=== PATIENT | male | born 1990 | race Caucasian/White ===

== ENCOUNTER 2020-09-07 05:41 | Day surgery (SDC) | payer BC ==
[2020-09-07] MEDS ORDERED: Lactated Ringers 1,000 ML IV SCH (06:30)
[2020-09-07] MEDS ORDERED: Versed 2 MG/2 ML Injection ONE (07:36)
[2020-09-07] MEDS ORDERED: DIPRIVAN 200 MG/20 ML IV ONE ×2 (07:36→07:37)
[2020-09-07 09:11] LABS: Hematocrit 39.9 % (42-50); Hemoglobin 13.8 gm/dl (12.5-18.0); Mean Cell Volume 82.3 fl (78-100); Mean Corpuscular Hemoglobin 28.5 pg (26-32); Mean Corpuscular Hgb Concent. 34.6 g/dl (32-36); Mean Platelet Volume 9.7 fl (7.5-11.0); Platelet Count 279 K/mm3 (150-450); Red Blood Count 4.85 M/mm3 (4.1-5.6); Red Cell Distribution Width 12.6 % (11.5-14.0); White Blood Count 7.9 K/mm3 (4.0-10.5)
[2020-09-07 09:36] VITALS: O2SAT 96
--- NOTE | 2020-09-07 10:31 | OP ---
SURGERY DATE/TIME: 09/06/2020 0743 PREOPERATIVE DIAGNOSIS: Rectal bleeding and pelvic pain. POSTOPERATIVE DIAGNOSIS: Concentric colon mass at 30 cm depth insertion. PROCEDURE: Colonoscopy with cold forceps biopsy. SURGEON: Dr. Kan. ANESTHESIA: MAC. Medications given by anesthesia department. HISTORY: The patient is a 30 year old white male patient who reports he has had rectal bleeding pretty much most of his life. He reports he has bowel movements about every three days. He has complaints of what he feels are internal and/or external hemorrhoids. Although on examination the patient's anal area was essentially normal. Digital examination revealed normal anal sphincter tone and no masses, normal prostate. The patient now reports he has been having problems with pelvic pain for which he is being examined and denies any family history of colon cancer, colon polyps or colitis. The patient was felt to need to have endoscopic evaluation. He was appraised of the risks of the procedure including the risk of perforation, phlebitis, untoward reaction to medication, bleeding and missed lesions. The patient verbalized his understanding and desired to have the procedure performed. DESCRIPTION OF PROCEDURE: The patient was given the medications by the anesthesia department. He had continuous pulse oximetry, ECG monitoring, intermittent blood pressure monitoring and tidal CO2 monitoring during the examination. He was placed in the left lateral decubitus position. A digital rectal examination was performed and described as above. The flexible Olympus pediatric colonoscope was used to intubate the rectum. A view of the colon was developed. In the sigmoid area approximately 30 cm depth insertion we began running into what appeared to be almost areas of necrotic appearing mucosa that was very firm and stenotic and we were unable to pass beyond 30 cm depth of insertion due to stenosis. Multiple biopsies were obtained from the edges of the lesion which is most consistent with adenocarcinoma of the colon. The scope was removed from the patient and he was sent back to OP recovery in good condition.
[2020-09-07 10:55] VITALS: BP 148/88; PULSE 70
--- NOTE | 2020-09-07 11:58 | XRAY ---
Indication: Sigmoid mass on same-day colonoscopy. Multiple contiguous axial images obtained through the abdomen and pelvis prior to and following 80 cc Isovue 370 contrast as ordered. Enteric contrast also used. Comparison: None Lung bases are clear. Heart is not enlarged. Noncontrasted images demonstrates tiny hepatic calcified granuloma. No other pathologic visceral calcifications/calculi. 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 Contrasted stomach and bowel loops appear nonobstructed. Distal ileum/terminal ileum demonstrates bowel wall thickening with stranding as seen in Crohn's disease. Appendix not identified. Majority of the sigmoid colon demonstrates mild/moderate circumferential wall thickening with intraluminal narrowing and pericolonic stranding either related to Crohn's versus mass. No free fluid/air. Right pelvis demonstrates 3.8 x 2.8 cm soft tissue mass, probable lymphadenopathy. Additional scattered small round mesenteric adenopathy, largest right mid abdomen anteriorly measuring 1.5 x 2.1 cm. Postcontrast images demonstrates normal visceral enhancement and renal excretion. Right mid kidney demonstrates a enhancing 1.2 cm noncalcified exophytic mass. Gallbladder moderately distended without gallstones or biliary distention. 3-4 mm right lobe hepatic cyst near the dome of the diaphragm. Remaining liver, gallbladder, pancreas, spleen, adrenal glands, kidneys, ureters, bladder, and aorta are unremarkable. No pathologic retroperitoneal lymphadenopathy. Osseous structures intact. No ventral or inguinal hernias. Impression: 1. Distal ileum/terminal ileum bowel wall thickening and stranding. Findings common to Crohn's disease. Malignancy not completely excluded. 2. Abnormal sigmoid bowel wall thickening, stranding, and intraluminal narrowing. Findings may be related to Crohn's disease but cannot completely exclude malignant mass. Malignancy is more likely as there is also probable metastatic mesenteric/pelvic lymphadenopathy. 3. 1.2 cm enhancing right renal mass concerning for renal cell carcinoma. 4. Incidental tiny hepatic cyst and tiny left renal angiomyolipoma.
== END 2020-09-07 11:10 | disposition home or self-care (01) ==
LOC: SDC 05:41
PROVIDERS: ATTEND Family Medicine
DX: C18.7 Malignant neoplasm of sigmoid colon (principal); K62.5 Hemorrhage of anus and rectum; R10.2 Pelvic and perineal pain; R19.00 Intra-abdominal and pelvic swelling, mass and lump, unspecified site
CPT/HCPCS: 36415; 74178; 82378; 85027; J2250; J2704

== ENCOUNTER 2021-08-22 10:30 | Emergency (ER) | payer BC ==
[2021-08-22] MEDS ORDERED: Sodium Chloride 0.9% 1000 ML 1,000 ML IV STA ×2 (10:49→12:23)
[2021-08-22] MEDS ORDERED: EMLA Cream 5 GM TP ONE ×2 (10:49→10:52)
[2021-08-22] MEDS ORDERED: Sodium Chloride 0.9% 1000 ML 1,000 ML ONE ×2 (10:56→12:24)
--- NOTE | 2021-08-22 11:09 | ERPHSYRPT ---
- History of Present Illness Time Seen by Provider: 08/22/21 10:40 Source: patient Patient Subjective Stated Complaint: weakness Triage Nursing Assessment: Patient brought back to ED via w/c and transferred to bed per self. Patient A+O X 3. Patient's skin pink, warm. Patient complains of weakness that started today. Patient has stage 4 colon cancer with mets to paratoneal lining. Patient had chemo last week. Patient states he has not been drinking enough fluids and feels like he is dehydrated. Patient has ileostomy and everything he does drink immediately comes out of ileostomy. Patient denies pain or discomfort. Physician History: Patient is a 31-year-old male 1 year post diagnosis of metastatic colon cancer presents to our ED feeling weak x1 3 days. Patient believes he is dehydrated. Patient states whenever he drinks his ileostomy output increases. Patient believes he is losing fluid through the ileostomy. No fever. Patient denies pain. Patient has a resting tachycardia. No chest pain or shortness of breath. Symptoms are constant. Symptoms are moderate in intensity. No specific worsening or improving factors. Patient voices no other complaints or concerns at this time. Timing/Duration: day(s) (3 days) Severity: moderate Modifying Factors: Improves With: nothing Associated Symptoms: No nausea, No vomiting, No abdominal pain, No shortness of breath, No diaphoresis, No cough, No chills, No fever, No headaches, No syncope, No seizure, No weakness Allergies/Adverse Reactions: No Known Drug Allergies Allergy (Verified 08/22/21 10:34) Home Medications: Oxycodone HCl/Acetaminophen [Roxicet 5-325 Tablet] 1 tab PO Q4H PRN PRN 08/22/21 [History] Hx Tetanus, Diphtheria Vaccination/Date Given: Yes Hx Influenza Vaccination/Date Given: No Hx Pneumococcal Vaccination/Date Given: No Immunizations Up to Date: Yes Travel Risk - International Travel Have you traveled outside of the country in past 3 weeks: No - Coronavirus Screening Are you exhibiting any of the following symptoms?: No Close contact with a COVID-19 positive Pt in past 14-21 Days: No - Vaccine Status Have you recieved a Covid-19 vaccination: No - Review of Systems Constitutional: No Symptoms, No Fever, No Chills Eyes: No Symptoms Ears, Nose, & Throat: No Symptoms Respiratory: No Symptoms, No Cough, No Dyspnea Cardiac: No Symptoms, No Chest Pain, No Edema, No Syncope Abdominal/Gastrointestinal: No Symptoms, No Abdominal Pain, No Nausea, No Vomiting, No Diarrhea Genitourinary Symptoms: No Symptoms, No Dysuria Musculoskeletal: No Symptoms, No Back Pain, No Neck Pain Skin: No Symptoms, No Rash Neurological: No Symptoms, No Dizziness, No Focal Weakness, No Sensory Changes Psychological: No Symptoms Endocrine: No Symptoms Hematologic/Lymphatic: No Symptoms Immunological/Allergic: No Symptoms All Other Systems: Reviewed and Negative - Past Medical History Pertinent Past Medical History: No Neurological History: No Pertinent History ENT History: No Pertinent History Cardiac History: No Pertinent History Respiratory History: No Pertinent History Endocrine Medical History: No Pertinent History Musculoskeletal History: Fractures GI Medical History: GERD History: No Pertinent History Male Reproductive Disorders: No Pertinent History Other Medical History: Left wrsit fx, colon mass. Stage 4 colon cancer with mets to paratoneal lining. with bone mets, but radiation got it gone. Checking this week again for bone mets. - Past Surgical History Past Surgical History: Yes Neuro Surgical History: No Pertinent History Cardiac: No Pertinent History Respiratory: No Pertinent History Gastrointestinal: Colon Resection, Other Genitourinary: No Pertinent History Musculoskeletal: No Pertinent History Male Surgical History: Vasectomy Other Surgical History: ileostomy - Social History Smoking Status: Former smoker Exposure to second hand smoke: No Drug Use: none Patient Lives Alone: No - Nursing Vital Signs Nursing Vital Signs: Initial Vital Signs Temperature 97.5 F 08/22/21 10:36 Pulse Rate 122 H 08/22/21 10:36 Respiratory Rate 20 08/22/21 10:36 Blood Pressure 149/102 08/22/21 10:36 O2 Sat by Pulse Oximetry 98 08/22/21 10:36 Pain Scale Pain Intensity 0 - Physical Exam General Appearance: no apparent distress, alert Eye Exam: PERRL/EOMI, eyes nml inspection Ears, Nose, Throat Exam: normal ENT inspection, TMs normal, pharynx normal, moist mucous membranes Neck Exam: normal inspection, non-tender, supple, full range of motion Respiratory Exam: normal breath sounds, lungs clear, airway intact, No chest tenderness, No respiratory distress Cardiovascular Exam: regular rate/rhythm, normal heart sounds, normal peripheral pulses Gastrointestinal/Abdomen Exam: soft, normal bowel sounds, other (Intact ileostomy site. No obvious cellulitis or erythema.), No tenderness, No distention, No mass Back Exam: normal inspection, normal range of motion, No CVA tenderness, No vertebral tenderness Extremity Exam: normal inspection, normal range of motion, pelvis stable Neurologic Exam: alert, oriented x 3, cooperative, normal mood/affect, nml cerebellar function, sensation nml, No motor deficits Skin Exam: normal color, warm, dry, No rash Lymphatic Exam: No adenopathy SpO2 Interpretation: normal SpO2: 98 O2 Delivery: Room Air - Course Nursing assessment & vital signs reviewed: Yes Ordered Tests: Active Orders 24 hr Category Date Time Status IV Insertion STAT Care 08/22/21 10:49 Active CBC W DIFF Stat Lab 08/22/21 11:25 Completed CMP Stat Lab 08/22/21 11:25 Completed LIPASE Stat Lab 08/22/21 11:25 Completed UA W/RFX UR CULTURE Stat Lab 08/22/21 12:03 Completed Medication Summary Generic Name Dose Route Start Last Admin Trade Name Freq PRN Reason Stop Dose Admin Heparin Sodium (Beef Lung) 500 units 08/22/21 14:36 Heparin Lock Flush Pf 500 Units/5 Ml Syringe PICC 09/21/21 14:35 PRN PRN IV PORT FLUSH Discontinued Medications Generic Name Dose Route Start Last Admin Trade Name Freq PRN Reason Stop Dose Admin Heparin Sodium (Beef Lung) Confirm 08/22/21 11:10 Heparin Lock Flush Pf 500 Units/5 Ml Syringe Administered 08/22/21 11:11 Dose 500 units .ROUTE .STK-MED ONE Heparin Sodium (Beef Lung) Confirm 08/22/21 14:23 Heparin Lock Flush Pf 500 Units/5 Ml Syringe Administered 08/22/21 14:24 Dose 500 units .ROUTE .STK-MED ONE Sodium Chloride 1,000 mls @ 999 mls/hr 08/22/21 10:49 08/22/21 12:06 Sodium Chloride 0.9% 1000 Ml IV 08/22/21 11:49 Infused .Q1H1M STA Infusion Sodium Chloride Confirm 08/22/21 10:56 Sodium Chloride 0.9% 1000 Ml Administered 08/22/21 10:57 Dose 1,000 mls @ ud .ROUTE .STK-MED ONE Sodium Chloride 1,000 mls @ 999 mls/hr 08/22/21 12:23 08/22/21 13:32 Sodium Chloride 0.9% 1000 Ml IV 08/22/21 13:23 Infused .Q1H1M STA Infusion Sodium Chloride Confirm 08/22/21 12:24 Sodium Chloride 0.9% 1000 Ml Administered 08/22/21 12:25 Dose 1,000 mls @ ud .ROUTE .STK-MED ONE Lidocaine/Prilocaine 2.5 gm 08/22/21 10:52 08/22/21 10:52 Lidocaine/Prilocaine 5 Gm 5 Gm Tube TP 08/22/21 10:53 2.5 gm STAT ONE Administration Lidocaine/Prilocaine Confirm 08/22/21 10:49 Lidocaine/Prilocaine 5 Gm 5 Gm Tube Administered 08/22/21 10:50 Dose 5 gm TP .STK-MED ONE Oxycodone/Acetaminophen 1 tab 08/22/21 11:50 08/22/21 11:56 Oxycodone Hcl/Apap 5 Mg/325 Mg Tablet PO 08/22/21 11:51 1 tab STAT STA Administration Oxycodone/Acetaminophen Confirm 08/22/21 11:55 Oxycodone Hcl/Apap 5 Mg/325 Mg Tablet Administered 08/22/21 11:56 Dose 1 tab .ROUTE .STK-MED ONE Lab/Rad Data: Laboratory Result Diagrams 08/22/21 11:25 08/22/21 11:25 Laboratory Results 08/22/21 08/22/21 08/22/21 Range/Units 12:03 11:25 11:25 WBC 12.0 H (4.0-10.5) K/mm3 RBC 5.77 H (4.1-5.6) M/mm3 Hgb 16.7 (12.5-18.0) gm/dl Hct 48.7 (42-50) % MCV 84.4 (78-100) fl MCH 28.9 (26-32) pg MCHC 34.3 (32-36) g/dl RDW 13.6 (11.5-14.0) % Plt Count 419 (150-450) K/mm3 MPV 9.1 (7.5-11.0) fl Gran % 78.0 H (36.0-66.0) % Eos # (Auto) 0.22 (0-0.5) Absolute Lymphs (auto) 1.33 (1.0-4.6) Absolute Monos (auto) 1.07 (0.0-1.3) Lymphocytes % 11.1 L (24.0-44.0) % Monocytes % 9.0 (0.0-12.0) % Eosinophils % 1.8 (0.00-5.0) % Basophils % 0.1 (0.0-0.4) % Absolute Granulocytes 9.32 H (1.4-6.9) Basophils # 0.01 (0-0.4) Sodium 134 L (137-145) mmol/L Potassium 4.2 (3.5-5.1) mmol/L Chloride 100 (98-107) mmol/L Carbon Dioxide 21 L (22-30) mmol/L Anion Gap 18.1 H (5-15) MEQ/L BUN 10 (9-20) mg/dL Creatinine 0.73 (0.66-1.25) mg/dL Estimated GFR > 60.0 ML/MIN Glucose 114 H (74-106) mg/dL Calcium 8.9 (8.4-10.2) mg/dL Total Bilirubin 0.60 (0.2-1.3) mg/dL AST 22 (17-59) U/L ALT 24 (0-50) U/L Alkaline Phosphatase 159 H (38-126) U/L Serum Total Protein 7.2 (6.3-8.2) g/dL Albumin 4.3 (3.5-5.0) g/dL Lipase 125 (23-300) U/L Urine Color YELLOW (YELLOW) Urine Appearance SLIGHTLY CLOUDY (CLEAR) Urine pH 6.0 (5-6) Ur Specific [place] 1.018 (1.005-1.025) Urine Protein 30 (Negative) Urine Ketones NEGATIVE (NEGATIVE) Urine Blood NEGATIVE (0-5) Sukumar/ul Urine Nitrite NEGATIVE (NEGATIVE) Urine Bilirubin NEGATIVE (NEGATIVE) Urine Urobilinogen NEGATIVE (0-1) mg/dL Ur Leukocyte Esterase NEGATIVE (NEGATIVE) Urine WBC (Auto) 3-5 (0-5) /HPF Urine RBC (Auto) NONE (0-2) /HPF U Epithel Cells (Auto) RARE (FEW) /HPF Urine Bacteria (Auto) RARE (NEGATIVE) /HPF Urine Mucus (Auto) SLIGHT (NEGATIVE) /HPF Urine Culture Reflexed NO (NO) Urine Glucose NEGATIVE (NEGATIVE) mg/dL - Progress Progress: improved Progress Note: Patient reassessed. He feels well. Vital stable. IV fluids administered. Patient ate a meal in our ED. Patient now requesting discharge. Work-up reveals a mild leukocytosis with a mild hyponatremia. No signs of infection ob served. Portions of this note were created with voice recognition technology. There may be grammatical, spelling, punctuation or sound alike errors 08/22/21 14:12 Counseled pt/family regarding: lab results, diagnosis, need for follow-up, rad results - Departure Departure Disposition: Home Clinical Impression: Dehydration, Hyponatremia, Leukocytosis Condition: Stable Critical Care Time: No Referrals: DAIANA BA MD [Primary Care Provider] - Follow up/PCP as directed Additional Instructions: Discharge/Care Plan NKECHIODALYS KIRSTEN was seen on 08/22/21 in the Emergency Room. The patient was counseled regarding Diagnosis,Lab results, Imaging studies, need for follow up and when to return to the Emergency Room. Prescriptions given: Discharge Note I have spoken with the patient and/or caregivers. I have explained the patient's condition, diagnosis and treatment plan based on the information available to me at this time. I have answered the patient's and/or caregiver's questions and addressed any concerns. The patient and/or caregivers have as good understanding of the patient's diagnosis, condition and treatment plan as can be expected at this point. The vital signs have been stable. The patient's condition is stable and appropriate for discharge from the emergency department. The patient will pursue further outpatient evaluation with the primary care physician or other designated or consulting physician as outlined in the discharge instructions. The patient and/or caregivers are agreeable to this plan of care and follow-up instructions have been explained in detail. The patient and/or caregivers have received these instruction. The patient/and or caregivers are aware that any significant change in condition or worsening of symptoms should prompt an immediate return to this or the closest emergency department or call 911.
[2021-08-22 11:46] LABS: Absolute Neutrophil Ct (ANC) 9.32 (1.4-6.9); BASOPHIL % 0.1 % (0.0-0.4); Basophil (Absolute #) 0.01 (0-0.4); Eosinophil % 1.8 % (0.00-5.0); Eosinophil (Absolute #) 0.22 (0-0.5); Hematocrit 48.7 % (42-50); Hemoglobin 16.7 gm/dl (12.5-18.0); Lymphocyte (Absolute #) 1.33 (1.0-4.6); Lymphocytes % 11.1 % (24.0-44.0); Mean Cell Volume 84.4 fl (78-100); Mean Corpuscular Hemoglobin 28.9 pg (26-32); Mean Corpuscular Hgb Concent. 34.3 g/dl (32-36); Mean Platelet Volume 9.1 fl (7.5-11.0); Monocyte (Absolute #) 1.07 (0.0-1.3); Platelet Count 419 K/mm3 (150-450); Red Blood Count 5.77 M/mm3 (4.1-5.6); Red Cell Distribution Width 13.6 % (11.5-14.0)
[2021-08-22 11:48] LABS: ALBUMIN 4.3 g/dL (3.5-5.0); ALKALINE PHOSPHATASE 159 U/L (38-126); ANION GAP 18.1 MEQ/L (5-15); BLOOD UREA NITROGEN 10 mg/dL (9-20); CHLORIDE 100 mmol/L (98-107); Calcium 8.9 mg/dL (8.4-10.2); Carbon Dioxide 21 mmol/L (22-30); Creatinine 1 0.73 mg/dL (0.66-1.25); EST GLOMERULAR FILTRATION RATE > 60.0 ML/MIN; Glucose 114 mg/dL (74-106); LIPASE 125 U/L (23-300); Potassium 4.2 mmol/L (3.5-5.1); SGOT/AST 22 U/L (17-59); SGPT/ALT 24 U/L (0-50); SODIUM 134 mmol/L (137-145); Total Protein 7.2 g/dL (6.3-8.2)
[2021-08-22] MEDS ORDERED: PERCOCET TABLET 5/325MG PO STA (11:50)
[2021-08-22] MEDS ORDERED: PERCOCET TABLET 5/325MG ONE (11:55)
[2021-08-22 12:17] LABS: Appearance SLIGHTLY CLOUDY (CLEAR); Bacteria RARE /HPF (NEGATIVE); Bilirubin NEGATIVE (NEGATIVE); Blood NEGATIVE Ery/ul (0-5); Epithelial Cells RARE /HPF (FEW); Glucose NEGATIVE (NEGATIVE); Ketones NEGATIVE (NEGATIVE); Leukocyte Esterase NEGATIVE (NEGATIVE); Mucus SLIGHT /HPF (NEGATIVE); Nitrite NEGATIVE (NEGATIVE); Protein,Urine Dip 30 (Negative); Specific Gravity 1.018 (1.005-1.025); Urobilinogen NEGATIVE mg/dL (0-1)
[2021-08-22 14:02] VITALS: BP 135/87
[2021-08-22 14:15] VITALS: O2SAT 98
[2021-08-22 14:38] VITALS: PULSE 107
== END 2021-08-22 14:44 | disposition home or self-care (01) ==
LOC: ED 10:30
DX: E86.0 Dehydration (principal); E87.1 Hypo-osmolality and hyponatremia; D72.829 Elevated white blood cell count, unspecified; Z98.0 Intestinal bypass and anastomosis status; Z85.038 Personal history of other malignant neoplasm of large intestine; Z79.891 Long term (current) use of opiate analgesic
CPT/HCPCS: 36000; 36415; 80053; 81001; 83690; 85025; 96360; 96361; 99284; J1642; A9270-GY

== ENCOUNTER 2021-08-24 06:10 | Observation (INO) | payer BC ==
[2021-08-24] MEDS ORDERED: Zofran 4 MG/2 ML VIAL IV ONE ×2 (06:40→13:14)
[2021-08-24] MEDS ORDERED: Sodium Chloride 0.9% 1000 ML 1,000 ML IV STA (06:40)
[2021-08-24] MEDS ORDERED: Zofran 4 MG/2 ML VIAL ONE ×2 (06:46→12:20)
[2021-08-24] MEDS ORDERED: Sodium Chloride 0.9% 1000 ML 1,000 ML ONE ×2 (06:47→08:08)
[2021-08-24 06:52] LABS: Absolute Neutrophil Ct (ANC) 7.68 (1.4-6.9); Basophil (Absolute #) 0 (0-0.4); Eosinophil % 2.1 % (0.00-5.0); Eosinophil (Absolute #) 0.23 (0-0.5); Hematocrit 54.9 % (42-50); Hemoglobin 18.8 gm/dl (12.5-18.0); Lymphocyte (Absolute #) 1.63 (1.0-4.6); Lymphocytes % 14.7 % (24.0-44.0); Mean Cell Volume 83.1 fl (78-100); Mean Corpuscular Hemoglobin 28.4 pg (26-32); Mean Corpuscular Hgb Concent. 34.2 g/dl (32-36); Mean Platelet Volume 9.1 fl (7.5-11.0); Monocyte (Absolute #) 1.57 (0.0-1.3); Monocytes % 14.1 % (0.0-12.0); Neutrophil % 69.1 % (36.0-66.0); Platelet Count 471 K/mm3 (150-450); Red Blood Count 6.61 M/mm3 (4.1-5.6); Red Cell Distribution Width 14.9 % (11.5-14.0); White Blood Count 11.1 K/mm3 (4.0-10.5)
[2021-08-24 07:02] LABS: ALBUMIN 4.6 g/dL (3.5-5.0); ALKALINE PHOSPHATASE 202 U/L (38-126); BLOOD UREA NITROGEN 16 mg/dL (9-20); CHLORIDE 93 mmol/L (98-107); Calcium 8.3 mg/dL (8.4-10.2); Carbon Dioxide 23 mmol/L (22-30); EST GLOMERULAR FILTRATION RATE > 60.0 ML/MIN; Glucose 163 mg/dL (74-106); Potassium 4.6 mmol/L (3.5-5.1); SGOT/AST 20 U/L (17-59); SGPT/ALT 26 U/L (0-50); SODIUM 132 mmol/L (137-145); Total Protein 7.7 g/dL (6.3-8.2)
[2021-08-24] MEDS ORDERED: Ativan 2 MG/1 ML VIAL ONE (07:35)
[2021-08-24] MEDS ORDERED: Sodium Chloride 0.9% 1000 ML 1,000 ML IV SCH (08:15)
[2021-08-24 08:29] LABS: Slide Review 1 YES
[2021-08-24] MEDS ORDERED: Inapsine 5 MG/2 ML IV ONE (08:54)
[2021-08-24] MEDS ORDERED: BENADRYL 50 MG/ML IV ONE (08:54)
--- NOTE | 2021-08-24 08:54 | XRAY ---
Indication: Abdomen pain. Sigmoid mass. Multiple contiguous images obtained through the abdomen and pelvis without contrast. Comparison: September 07, 2020. Lung bases remain clear. Heart not enlarged. New right mid abdomen diverting ostomy. Stomach and small bowel loops are now fluid distended with air-fluid leveling. Jejunal bowel loop is air distended up to 4 cm with asynchronous fluid leveling concerning for small bowel obstruction. There remains mid to proximal sigmoid bowel wall thickening versus mass. Lack of contrast precludes further characterization. New diffuse mesenteric micronodules and right abdominal mesenteric caking worrisome for metastasis. New tiny perihepatic and right colic free fluid. No free air. 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 Right mid kidney demonstrates stable 1.2 cm indeterminant exophytic mass. Remaining liver, gallbladder, pancreas, spleen, adrenal glands, kidneys, ureters, bladder, and aorta appear unremarkable for noncontrast exam. No pathologic retroperitoneal lymphadenopathy. Osseous structures intact. No suspicious bony lesions. Impression: 1. New right mid abdomen diverting ostomy. 2. New fluid distended stomach and proximal small bowel loops with asynchronous air-fluid leveling favoring small bowel obstruction. 3. New diffuse mesenteric micronodules and mesenteric caking worrisome for metastasis. Tiny free fluid but no free air. 4. Again sigmoid bowel wall thickening versus mass. 5. Stable indeterminant right renal exophytic mass and left renal angiomyolipoma.
[2021-08-24] MEDS ORDERED: Ativan 2 MG/1 ML VIAL IV ONE ×2 (08:55→20:21)
[2021-08-24] MEDS ORDERED: BENADRYL 50 MG/ML ONE (08:59)
[2021-08-24] MEDS ORDERED: Inapsine 5 MG/2 ML ONE (08:59)
--- NOTE | 2021-08-24 09:46 | ERPHSYRPT ---
- History of Present Illness Time Seen by Provider: 08/24/21 08:14 Source: patient Exam Limitations: no limitations Patient Subjective Stated Complaint: pt states "I need fluids." Triage Nursing Assessment: pt came into the er via wheelchair; pt is axo x4; hx colon cancer; c/o dehydration; pt denies pain; pt denies N/V; pt states that he has liquid stools in his ileostomy; pt states that he was in the er on 08/22/21 for fluids; pt states that he went to his oncologist yesterday and received 1 L for fluid; pt states weakness; pt states that he is taking imodium to help form stool with no success; abd is soft, nontender; active bowel sounds in all quads; Physician History: 31 years old male with 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 Patient was seen in the ER 2 days ago, given fluids and received fluid at his oncology yesterday but it does not seem to be improving despite taking Imodium. Patient feels weak fatigued tired and dehydrated. Minimal abdominal discomfort/cramping at times. No nausea or vomiting. No fever or chills reported. Timing/Duration: day(s) (4), constant, gradual onset, worse Severity: moderate Modifying Factors: Improves With: nothing Associated Symptoms: abdominal pain Allergies/Adverse Reactions: No Known Drug Allergies Allergy (Unverified 08/24/21 06:19) Home Medications: Oxycodone HCl/Acetaminophen [Roxicet 5-325 Tablet] 1 tab PO Q4H PRN PRN 08/22/21 [History] Lorazepam 0.5 mg [Ativan 0.5 MG] 0.5 mg PO HS 08/24/21 [History] Hx Tetanus, Diphtheria Vaccination/Date Given: Yes Hx Influenza Vaccination/Date Given: No Hx Pneumococcal Vaccination/Date Given: No Travel Risk - International Travel Have you traveled outside of the country in past 3 weeks: No - Coronavirus Screening Are you exhibiting any of the following symptoms?: No Close contact with a COVID-19 positive Pt in past 14-21 Days: No - Vaccine Status Have you recieved a Covid-19 vaccination: No - Review of Systems Constitutional: Fatigue, Weakness Eyes: No Symptoms Ears, Nose, & Throat: No Symptoms Respiratory: No Symptoms Cardiac: Orthopnea Abdominal/Gastrointestinal: Abdominal Pain, Diarrhea Genitourinary Symptoms: No Symptoms Musculoskeletal: No Symptoms Skin: No Symptoms Neurological: No Symptoms Psychological: No Symptoms Endocrine: No Symptoms Hematologic/Lymphatic: No Symptoms Immunological/Allergic: No Symptoms - Past Medical History Pertinent Past Medical History: No Neurological History: No Pertinent History ENT History: No Pertinent History Cardiac History: No Pertinent History Respiratory History: No Pertinent History Endocrine Medical History: No Pertinent History Musculoskeletal History: Fractures GI Medical History: GERD, Other History: No Pertinent History Male Reproductive Disorders: No Pertinent History Other Medical History: Left wrsit fx, colon mass. Stage 4 colon cancer with mets to paratoneal lining. with bone mets, but radiation got it gone. Checking this week again for bone mets. - Past Surgical History Past Surgical History: Yes Neuro Surgical History: No Pertinent History Cardiac: No Pertinent History Respiratory: No Pertinent History Gastrointestinal: Colon Resection, Other Genitourinary: No Pertinent History Musculoskeletal: No Pertinent History Male Surgical History: Vasectomy Other Surgical History: ileostomy - Social History Smoking Status: Former smoker Exposure to second hand smoke: No Drug Use: none Patient Lives Alone: No - Nursing Vital Signs Nursing Vital Signs: Initial Vital Signs Pulse Rate 132 H 08/24/21 06:20 Respiratory Rate 18 08/24/21 06:20 Blood Pressure 127/82 08/24/21 06:20 O2 Sat by Pulse Oximetry 96 08/24/21 06:20 Pain Scale Pain Intensity 0 - Physical Exam General Appearance: no apparent distress, alert, anxiety Eye Exam: PERRL/EOMI, eyes nml inspection Ears, Nose, Throat Exam: normal ENT inspection, TMs normal, pharynx normal, dry mucous membranes Neck Exam: normal inspection, non-tender, supple, full range of motion Respiratory Exam: normal breath sounds, lungs clear Cardiovascular Exam: normal heart sounds, normal peripheral pulses, tachycardia Gastrointestinal/Abdomen Exam: soft, other (Ostomy well in place), No normal bowel sounds (Hyperactive), No tenderness Back Exam: normal inspection, normal range of motion Extremity Exam: normal inspection, normal range of motion Neurologic Exam: alert, oriented x 3, cooperative, can pusher II-XII nml as tested Skin Exam: normal color SpO2 Interpretation: normal SpO2: 97 Ordered Tests: Active Orders 24 hr Category Date Time Status IV Insertion STAT Care 08/24/21 06:40 Active ABDOMEN AND PELVIS W/0 CONTRAS [CT] Stat Exams 08/24/21 07:42 Completed CBC W DIFF Stat Lab 08/24/21 06:25 Completed CMP Stat Lab 08/24/21 06:25 Completed Lactic Acid Stat Lab 08/24/21 06:45 Completed MAG [MAGNESIUM] Stat Lab 08/24/21 06:25 Completed UA W/RFX UR CULTURE Stat Lab 08/24/21 11:49 Completed Medication Summary Generic Name Dose Route Start Last Admin Trade Name Freq PRN Reason Stop Dose Admin Sodium Chloride 1,000 mls @ 100 mls/hr 08/24/21 08:15 08/24/21 14:41 Sodium Chloride 0.9% 1000 Ml IV 09/23/21 08:14 Infused .Q10H FABIANA Infusion Sodium Chloride 500 mls @ 500 mls/hr 08/24/21 14:38 08/24/21 14:40 Sodium Chloride 0.9% 500 Ml IV 08/24/21 15:37 500 mls/hr .Q1H ONE Administration Discontinued Medications Generic Name Dose Route Start Last Admin Trade Name Freq PRN Reason Stop Dose Admin Diphenhydramine HCl 25 mg 08/24/21 08:54 08/24/21 09:00 Diphenhydramine Hcl 50 Mg/Ml Vial IV 08/24/21 08:55 25 mg STAT ONE Administration Diphenhydramine HCl Confirm 08/24/21 08:59 Diphenhydramine Hcl 50 Mg/Ml Vial Administered 08/24/21 09:00 Dose 50 mg .ROUTE .STK-MED ONE Droperidol 0.625 mg 08/24/21 08:54 08/24/21 09:02 Droperidol 5 Mg/2 Ml Vial IV 08/24/21 08:55 0.625 mg STAT ONE Administration Droperidol Confirm 08/24/21 08:59 Droperidol 5 Mg/2 Ml Vial Administered 08/24/21 09:00 Dose 5 mg .ROUTE .STK-MED ONE Sodium Chloride 1,000 mls @ 999 mls/hr 08/24/21 06:40 08/24/21 07:51 Sodium Chloride 0.9% 1000 Ml IV 08/24/21 07:40 Infused .Q1H1M STA Infusion Sodium Chloride Confirm 08/24/21 06:47 Sodium Chloride 0.9% 1000 Ml Administered 08/24/21 06:48 Dose 1,000 mls @ ud .ROUTE .STK-MED ONE Sodium Chloride Confirm 08/24/21 08:08 Sodium Chloride 0.9% 1000 Ml Administered 08/24/21 08:09 Dose 1,000 mls @ ud .ROUTE .STK-MED ONE Sodium Chloride Confirm 08/24/21 14:39 Sodium Chloride 0.9% 500 Ml Administered 08/24/21 14:40 Dose 500 mls @ ud IV .STK-MED ONE Lorazepam Confirm 08/24/21 07:35 Lorazepam 2 Mg/1 Ml 2 Mg Vial Administered 08/24/21 07:36 Dose 2 mg .ROUTE .STK-MED ONE Lorazepam 1 mg 08/24/21 08:55 08/24/21 07:42 Lorazepam 2 Mg/1 Ml 2 Mg Vial IV 08/24/21 08:56 1 mg STAT ONE Administration Ondansetron HCl 4 mg 08/24/21 06:40 08/24/21 06:48 Ondansetron Hcl 4 Mg/2 Ml Vial IV 08/24/21 06:41 4 mg STAT ONE Administration Ondansetron HCl Confirm 08/24/21 06:46 Ondansetron Hcl 4 Mg/2 Ml Vial Administered 08/24/21 06:47 Dose 4 mg .ROUTE .STK-MED ONE Ondansetron HCl Confirm 08/24/21 12:20 Ondansetron Hcl 4 Mg/2 Ml Vial Administered 08/24/21 12:21 Dose 4 mg .ROUTE .STK-MED ONE Ondansetron HCl 4 mg 08/24/21 13:14 08/24/21 13:23 Ondansetron Hcl 4 Mg/2 Ml Vial IV 08/24/21 13:15 4 mg STAT ONE Administration Lab/Rad Data: Laboratory Result Diagrams 08/24/21 06:25 08/24/21 06:25 Laboratory Results 08/24/21 08/24/21 08/24/21 Range/Units 11:49 06:45 06:25 WBC (4.0-10.5) K/mm3 RBC (4.1-5.6) M/mm3 Hgb (12.5-18.0) gm/dl Hct (42-50) % MCV (78-100) fl MCH (26-32) pg MCHC (32-36) g/dl RDW (11.5-14.0) % Plt Count (150-450) K/mm3 MPV (7.5-11.0) fl Gran % (36.0-66.0) % Eos # (Auto) (0-0.5) Absolute Lymphs (auto) (1.0-4.6) Absolute Monos (auto) (0.0-1.3) Lymphocytes % (24.0-44.0) % Monocytes % (0.0-12.0) % Eosinophils % (0.00-5.0) % Basophils % (0.0-0.4) % Absolute Granulocytes (1.4-6.9) Basophils # (0-0.4) Sodium (137-145) mmol/L Potassium (3.5-5.1) mmol/L Chloride (98-107) mmol/L Carbon Dioxide (22-30) mmol/L Anion Gap (5-15) MEQ/L BUN (9-20) mg/dL Creatinine (0.66-1.25) mg/dL Estimated GFR ML/MIN Glucose (74-106) mg/dL Lactic Acid 1.9 (0.4-2.0) Calcium (8.4-10.2) mg/dL Magnesium 2.0 (1.6-2.3) mg/dL Total Bilirubin (0.2-1.3) mg/dL AST (17-59) U/L ALT (0-50) U/L Alkaline Phosphatase (38-126) U/L Serum Total Protein (6.3-8.2) g/dL Albumin (3.5-5.0) g/dL Urine Color SHAWN (YELLOW) Urine Appearance SLIGHTLY CLOUDY (CLEAR) Urine pH 5.0 (5-6) Ur Specific Hastings 1.021 (1.005-1.025) Urine Protein 30 (Negative) Urine Ketones NEGATIVE (NEGATIVE) Urine Blood NEGATIVE (0-5) Sukumar/ul Urine Nitrite NEGATIVE (NEGATIVE) Urine Bilirubin NEGATIVE (NEGATIVE) Urine Urobilinogen NEGATIVE (0-1) mg/dL Ur Leukocyte Esterase NEGATIVE (NEGATIVE) Urine WBC (Auto) 3-5 (0-5) /HPF Urine RBC (Auto) NONE (0-2) /HPF U Hyaline Cast (Auto) 11-25 (0-2) /LPF U Epithel Cells (Auto) NONE (FEW) /HPF Urine Bacteria (Auto) RARE (NEGATIVE) /HPF Urine Mucus (Auto) SLIGHT (NEGATIVE) /HPF Urine Culture Reflexed NO (NO) Urine Glucose NEGATIVE (NEGATIVE) mg/dL Slides for Path Review 08/24/21 08/24/21 Range/Units 06:25 06:25 WBC 11.1 H (4.0-10.5) K/mm3 RBC 6.61 H (4.1-5.6) M/mm3 Hgb 18.8 H (12.5-18.0) gm/dl Hct 54.9 H (42-50) % MCV 83.1 (78-100) fl MCH 28.4 (26-32) pg MCHC 34.2 (32-36) g/dl RDW 14.9 H (11.5-14.0) % Plt Count 471 H (150-450) K/mm3 MPV 9.1 (7.5-11.0) fl Gran % 69.1 H (36.0-66.0) % Eos # (Auto) 0.23 (0-0.5) Absolute Lymphs (auto) 1.63 (1.0-4.6) Absolute Monos (auto) 1.57 H (0.0-1.3) Lymphocytes % 14.7 L (24.0-44.0) % Monocytes % 14.1 H (0.0-12.0) % Eosinophils % 2.1 (0.00-5.0) % Basophils % 0.0 (0.0-0.4) % Absolute Granulocytes 7.68 H (1.4-6.9) Basophils # 0 (0-0.4) Sodium 132 L (137-145) mmol/L Potassium 4.6 (3.5-5.1) mmol/L Chloride 93 L (98-107) mmol/L Carbon Dioxide 23 (22-30) mmol/L Anion Gap 20.0 H (5-15) MEQ/L BUN 16 (9-20) mg/dL Creatinine 1.30 H (0.66-1.25) mg/dL Estimated GFR > 60.0 ML/MIN Glucose 163 H (74-106) mg/dL Lactic Acid (0.4-2.0) Calcium 8.3 L (8.4-10.2) mg/dL Magnesium (1.6-2.3) mg/dL Total Bilirubin 0.60 (0.2-1.3) mg/dL AST 20 (17-59) U/L ALT 26 (0-50) U/L Alkaline Phosphatase 202 H (38-126) U/L Serum Total Protein 7.7 (6.3-8.2) g/dL Albumin 4.6 (3.5-5.0) g/dL Urine Color (YELLOW) Urine Appearance (CLEAR) Urine pH (5-6) Ur Specific Hastings (1.005-1.025) Urine Protein (Negative) Urine Ketones (NEGATIVE) Urine Blood (0-5) Sukumar/ul Urine Nitrite (NEGATIVE) Urine Bilirubin (NEGATIVE) Urine Urobilinogen (0-1) mg/dL Ur Leukocyte Esterase (NEGATIVE) Urine WBC (Auto) (0-5) /HPF Urine RBC (Auto) (0-2) /HPF U Hyaline Cast (Auto) (0-2) /LPF U Epithel Cells (Auto) (FEW) /HPF Urine Bacteria (Auto) (NEGATIVE) /HPF Urine Mucus (Auto) (NEGATIVE) /HPF Urine Culture Reflexed (NO) Urine Glucose (NEGATIVE) mg/dL Slides for Path Review YES - Progress Progress: improved Progress Note: 08/24/21 09:47 Is given fluid bolus and tachycardia is improving. Patient feels a little better. Has white count of 11, his creatinine 2 days ago was 0.7 and today 1.3. I believe patient needs more IV hydration. I have obtained CT abdomen pelvis without contrast which showed air-fluid levels suggesting SBO which I believe is more of a diarrheal disease related. I have discussed with Dr. Ba who recommended taking general surgery on board before admitting in here. I have discussed with Dr. Yissel Proctor, reviewed history, work-up and recommended patient to be transferred to place where his ileostomy was made. We will contact Latasha Cervantes 08/24/21 10:13 Discussed with PA for Dr. Petersen/[facility] who is very well familiar with patient condition. Agreed with transfer. She would contact their transfer center and internal medicine and will call us back. 08/24/21 10:[address] Wynn hospitalist and Dr. Mims off oncology, reviewed history, work-up and patient is accepted for transfer. Plan discussed with patient who understand and agrees with it. 08/24/21 15:20 Patient is accepted at [facility] but no bed is available and is on the wait list. Discussed with admitting about possibility of intestinal obstruction and still do not want to to be transferred immediately. I have discussed with Dr. Ba and Dr. Cerna, reviewed history, work-up and bed situation at [facility], Dr. Ba agreed with admission patient in here until bed is available and we will continue to hydrate him. Plan discussed with patient and family who understand and agree with it. Discussed with DrIvy: Twyla Iniguez Counseled pt/family regarding: lab results, diagnosis, need for follow-up, rad results - Departure Departure Disposition: Observation Clinical Impression: Small bowel obstruction, Acute renal failure, Diarrhea Condition: Stable Critical Care Time: No Referrals: DAIANA BA MD [Primary Care Provider] - Follow up/PCP as directed
[2021-08-24 12:00] LABS: Appearance SLIGHTLY CLOUDY (CLEAR); Bacteria RARE /HPF (NEGATIVE); Bilirubin NEGATIVE (NEGATIVE); Blood NEGATIVE Ery/ul (0-5); Glucose NEGATIVE (NEGATIVE); Ketones NEGATIVE (NEGATIVE); Leukocyte Esterase NEGATIVE (NEGATIVE); Mucus SLIGHT /HPF (NEGATIVE); Nitrite NEGATIVE (NEGATIVE); Protein,Urine Dip 30 (Negative); Specific Gravity 1.021 (1.005-1.025); Urobilinogen NEGATIVE mg/dL (0-1)
[2021-08-24] MEDS ORDERED: Sodium Chloride 0.9% 500 ML 500 ML IV ONE ×2 (14:38→14:39)
[2021-08-24 16:32] LABS: INFLUENZA A NEGATIVE (NEGATIVE); INFLUENZA B NEGATIVE (NEGATIVE); RESPIRATORY SYNCTIAL VIRUS NEGATIVE (Negative); SARS-CoV-2 Xpert Express NEGATIVE (NEGATIVE)
[2021-08-24] MEDS ORDERED: TYLENOL 325 MG PO PRN (17:38)
[2021-08-24] MEDS: Sodium Chloride 0.9% 1000 ML 1,000 ML IV SCH (18:16)
[2021-08-24] MEDS ORDERED: Compazine 5 MG PO PRN (20:18)
[2021-08-24] MEDS: PERCOCET TABLET 5/325MG PO PRN (20:25)
[2021-08-24] MEDS: Zofran 4 MG/2 ML VIAL IV PRN (20:50)
[2021-08-25] MEDS: PERCOCET TABLET 5/325MG PO PRN ×4 (02:16→16:23)
[2021-08-25] MEDS: Sodium Chloride 0.9% 1000 ML 1,000 ML IV SCH ×2 (02:17→10:24)
[2021-08-25 06:00] LABS: Absolute Neutrophil Ct (ANC) 5.24 (1.4-6.9); BASOPHIL % 0.1 % (0.0-0.4); Basophil (Absolute #) 0.01 (0-0.4); Eosinophil % 4.7 % (0.00-5.0); Eosinophil (Absolute #) 0.42 (0-0.5); Hematocrit 44.7 % (42-50); Lymphocyte (Absolute #) 1.96 (1.0-4.6); Lymphocytes % 21.8 % (24.0-44.0); Mean Cell Volume 85.5 fl (78-100); Mean Corpuscular Hemoglobin 28.7 pg (26-32); Mean Corpuscular Hgb Concent. 33.6 g/dl (32-36); Mean Platelet Volume 9.1 fl (7.5-11.0); Monocyte (Absolute #) 1.36 (0.0-1.3); Monocytes % 15.1 % (0.0-12.0); Neutrophil % 58.3 % (36.0-66.0); Platelet Count 290 K/mm3 (150-450); Red Blood Count 5.23 M/mm3 (4.1-5.6)
[2021-08-25 06:15] LABS: ALBUMIN 3.5 g/dL (3.5-5.0); ALKALINE PHOSPHATASE 120 U/L (38-126); ANION GAP 12.1 MEQ/L (5-15); BLOOD UREA NITROGEN 12 mg/dL (9-20); CHLORIDE 98 mmol/L (98-107); Calcium 6.3 mg/dL (8.4-10.2); Carbon Dioxide 25 mmol/L (22-30); Creatinine 1 1.08 mg/dL (0.66-1.25); EST GLOMERULAR FILTRATION RATE > 60.0 ML/MIN; Glucose 108 mg/dL (74-106); Potassium 3.6 mmol/L (3.5-5.1); SGOT/AST 18 U/L (17-59); SGPT/ALT 21 U/L (0-50); SODIUM 131 mmol/L (137-145); Total Protein 6.2 g/dL (6.3-8.2)
[2021-08-25] MEDS ORDERED: Ativan 0.5 MG PO PRN (08:12)
[2021-08-25] MEDS ORDERED: PROTONIX 40 MG IV IV SCH (10:00)
--- NOTE | 2021-08-25 11:14 | XRAY ---
Indication: Small bowel obstruction. History: Cancer. Multiple contiguous axial images obtained through the abdomen and pelvis without contrast. Comparison: One day earlier. Lung bases remain clear. Heart not enlarged. Stomach and small bowel loops are again mildly distended less than before again with asynchronous fluid leveling. Maximum distended jejunum is 2.9 cm, previously 4 cm. Findings again favor small bowel obstruction. There remains radiopacity throughout the colon presumed ingested medication/bismuth versus barium. Grossly stable right mid abdomen diverting ostomy, mid to proximal sigmoid bowel wall thickening/mass, diffuse metastatic mesenteric micronodules/mesenteric caking, tiny perihepatic fluid, small right mid renal indeterminant exophytic mass, and tiny left mid renal angiomyolipoma. No free air. Remaining liver, gallbladder, pancreas, spleen, adrenal glands, kidneys, ureters, and bladder are unremarkable for noncontrast exam. Impression: 1. Small bowel obstruction improved as detailed above. 2. Remaining CT abdomen/pelvis without contrast unchanged again demonstrating right mid abdomen diverting ostomy, diffuse mesenteric metastasis with tiny free fluid, sigmoid bowel wall thickening/mass, small indeterminate right renal exophytic mass, and tiny left renal angiomyolipoma.
[2021-08-25 13:01] VITALS: O2SAT 98
[2021-08-25] MEDS: Zofran 4 MG/2 ML VIAL IV PRN (13:24)
[2021-08-25 17:00] VITALS: BP 136/88; PULSE 93
--- NOTE | 2021-09-01 20:36 | PCM.SSS ---
History of Present Illness - Chief Complaint Chief Complaint: weakness, volume depletion Date: 08/25/21 History of Present Illness: is a 31 year old male. Pt. with history of severe metastatic colon cancer, currently working with hospitals and oncologist in [place] for further management of his ongoing treatment of his cancer. Pt. was unable to hold down food and liquids for the past several days and presented to ER for stabilization. Pt. notes he has been receiving chemotherapy in hopes to soon debulk his cancer and initiate a treatment he had previously failed, but hopes he now will tolerate. CT showed a small bowel obstruction and patient being unable to be transferred was admitted to hospital for further management and stabilization as we await a bed available with his oncologist and surgeons. - Review of Systems Constitutional: No Fever, No Chills Eyes: No Symptoms Ears, Nose, & Throat: No Symptoms Respiratory: No Cough, No Short Of Breath Cardiac: No Chest Pain, No Edema, No Syncope Abdominal/Gastrointestinal: Abdominal Pain, Nausea, Vomiting, Diarrhea Genitourinary Symptoms: No Dysuria Musculoskeletal: No Back Pain, No Neck Pain Skin: No Rash Neurological: No Dizziness, No Focal Weakness, No Sensory Changes Psychological: No Symptoms Endocrine: No Symptoms Hematologic/Lymphatic: No Symptoms Immunological/Allergic: No Symptoms Medications & Allergies Home Medications: Home Medication List Oxycodone HCl/Acetaminophen [Roxicet 5-325 Tablet] 1 tab PO Q4H PRN PRN 08/22/21 [History Confirmed 08/24/21] Lorazepam 0.5 mg [Ativan 0.5 MG] 0.5 mg PO Q6HPRN PRN 08/24/21 [History Confirmed 08/24/21] Prochlorperazine Maleate 10 mg [Compazine 10 mg] 10 mg PO Q6HPRN PRN 08/24/21 [History Confirmed 08/24/21] Allergies/Adverse Reactions: Allergies Allergy/AdvReac Type Severity Reaction Status Date / Time No Known Drug Allergies Allergy Unverified 08/24/21 06:19 - Past Medical History Past Medical History: No Neurological History: No Pertinent History ENT History: No Pertinent History Cardiac History: No Pertinent History Respiratory History: No Pertinent History Endocrine Medical History: No Pertinent History Musculoskelatal History: Fractures GI Medical History: Colorectal Cancer, GERD, Other History: No Pertinent History Male Reproductive Disorders: No Pertinent History Comment: Left wrsit fx, colon mass. Stage 4 colon cancer with mets to paratoneal lining. with bone mets, but radiation got it gone. Checking this week again for bone mets. - Past Surgical History Past Surgical History: Yes Neuro Surgical History: No Pertinent History Cardiac History: No Pertinent History Respiratory Surgery: No Pertinent History GI Surgical History: Colon Resection, Other Genitourinary Surgical Hx: No Pertinent History Musculskeletal Surgical Hx: No Pertinent History Male Surgical History: Vasectomy Other Surgical History: ileostomy - Social History Smoking Status: Never smoker Exposure to second hand smoke: No Alcohol: None Drug Use: none - Physical Exam General Appearance: no apparent distress, alert Neurologic Exam: alert, oriented x 3, cooperative, normal mood/affect, nml cerebellar function, nml station & gait, sensation nml, No motor deficits Eye Exam: PERRL/EOMI, eyes nml inspection Ears, Nose, Throat Exam: normal ENT inspection, moist mucous membranes Neck Exam: normal inspection, non-tender, supple, full range of motion Respiratory Exam: normal breath sounds, lungs clear, No respiratory distress Cardiovascular Exam: regular rate/rhythm, normal heart sounds, normal peripheral pulses Gastrointestinal/Abdomen Exam: soft, normal bowel sounds, No tenderness, No mass Back Exam: normal inspection, normal range of motion, No CVA tenderness, No vertebral tenderness Extremity Exam: normal inspection, normal range of motion, pelvis stable Skin Exam: normal color, warm, dry, No rash Lymphatic Exam: No adenopathy Assessment/Plan (1) Abdominal pain Status: Acute Code(s): R10.9 - UNSPECIFIED ABDOMINAL PAIN (2) Dehydration Status: Acute Code(s): E86.0 - DEHYDRATION (3) Diarrhea Status: Acute Code(s): R19.7 - DIARRHEA, UNSPECIFIED (4) Small bowel obstruction Status: Acute Code(s): K56.609 - UNSP INTESTNL OBST, UNSP TO PARTIAL VERSUS COMPLETE OBST Hospital Summary - Hospital Course Hospital Course: Pt. admitted and started on appropriate ivf, pain management and anti emetic medications, the following morning the patient was feeling much better as we awaited an open bed at hospital serviced by his oncologist and surgical group. Bed opened up later in the day and patient was transferred for further evaluation and management of his cancer, small bowel obstruction and hopefully further treatment of his cancer. - Vitals & Intake/Output Vital Signs: Vital Signs Temperature 97.3 F 08/25/21 16:00 Pulse Rate 93 H 08/25/21 16:00 Respiratory Rate 16 08/25/21 16:00 Blood Pressure 136/88 08/25/21 16:00 O2 Sat by Pulse Oximetry 98 08/25/21 16:00 - Lab Result Diagrams: 08/25/21 05:40 08/25/21 05:40 - Discharge Discharge Date: 08/25/21 Disposition: DC TO OTHER HOSP Condition: Stable Prescriptions: No Action Oxycodone HCl/Acetaminophen [Roxicet 5-325 Tablet] 1 tab PO Q4H PRN PRN PRN Reason: Pain Lorazepam 0.5 mg [Ativan 0.5 MG] 0.5 mg PO Q6HPRN PRN PRN Reason: Anxiety Prochlorperazine Maleate 10 mg [Compazine 10 mg] 10 mg PO Q6HPRN PRN PRN Reason: Nausea Follow up with: DAIANA BA MD [Primary Care Provider] -
== END 2021-08-25 18:55 ==
LOC: ED 06:10 → MED SURG 17:23
PROVIDERS: ADMIT Family Medicine; ATTEND Family Medicine
DX: K56.609 Unspecified intestinal obstruction, unspecified as to partial versus complete obstruction (principal); E86.0 Dehydration; R10.9 Unspecified abdominal pain; N17.9 Acute kidney failure, unspecified; R19.7 Diarrhea, unspecified; Z20.828 Contact with and (suspected) exposure to other viral communicable diseases; Z85.038 Personal history of other malignant neoplasm of large intestine
CPT/HCPCS: 0241U; 36000; 36415; 74176; 80053; 81001; 83605; 83735; 85025; 93268; 96360; 96374; 96375; 99285; G0378; J1200; J2060; J2405; A9270-GY

== ENCOUNTER 2021-11-17 21:44 | Emergency (ER) | payer BC ==
[2021-11-17] MEDS ORDERED: Zofran 4 MG/2 ML VIAL IV ONE (21:52)
[2021-11-17] MEDS ORDERED: Hydromorphone 1 mg/ml Injection IV ONE ×2 (21:52→22:33)
[2021-11-17] MEDS ORDERED: Zofran 4 MG/2 ML VIAL ONE (21:52)
[2021-11-17] MEDS ORDERED: Sodium Chloride 0.9% 1000 ML 1,000 ML ONE (21:53)
[2021-11-17] MEDS ORDERED: Hydromorphone 1 mg/ml Injection ONE ×2 (21:53→22:39)
[2021-11-17] MEDS ORDERED: Sodium Chloride 0.9% 1000 ML 1,000 ML IV SCH (22:00)
[2021-11-17] MEDS ORDERED: VALIUM 10 MG/2 ML SYRINGE IV ONE (22:01)
[2021-11-17] MEDS ORDERED: VALIUM 10 MG/2 ML SYRINGE ONE (22:01)
[2021-11-17 22:25] LABS: Absolute Neutrophil Ct (ANC) 9.88 (1.4-6.9); Basophil (Absolute #) 0.01 (0-0.4); Eosinophil % 0.1 % (0.00-5.0); Eosinophil (Absolute #) 0.01 (0-0.5); Hematocrit 37.7 % (42-50); Hemoglobin 12.3 gm/dl (12.5-18.0); Lymphocyte (Absolute #) 0.81 (1.0-4.6); Lymphocytes % 6.8 % (24.0-44.0); Mean Cell Volume 82.9 fl (78-100); Mean Corpuscular Hgb Concent. 32.6 g/dl (32-36); Mean Platelet Volume 9.1 fl (7.5-11.0); Monocyte (Absolute #) 1.14 (0.0-1.3); Monocytes % 9.6 % (0.0-12.0); Neutrophil % 83.4 % (36.0-66.0); Platelet Count 433 K/mm3 (150-450); Red Blood Count 4.55 M/mm3 (4.1-5.6); Red Cell Distribution Width 16.1 % (11.5-14.0); White Blood Count 11.9 K/mm3 (4.0-10.5)
[2021-11-17 22:37] LABS: ALBUMIN 3.1 g/dL (3.5-5.0); ALKALINE PHOSPHATASE 183 U/L (38-126); ANION GAP 12.4 MEQ/L (5-15); BLOOD UREA NITROGEN 19 mg/dL (9-20); CHLORIDE 82 mmol/L (98-107); Carbon Dioxide 35 mmol/L (22-30); Creatinine 1 0.66 mg/dL (0.66-1.25); EST GLOMERULAR FILTRATION RATE > 60.0 ML/MIN; Glucose 109 mg/dL (74-106); Potassium 3.7 mmol/L (3.5-5.1); SGOT/AST 24 U/L (17-59); SGPT/ALT 19 U/L (0-50); SODIUM 126 mmol/L (137-145); Total Protein 6.2 g/dL (6.3-8.2)
--- NOTE | 2021-11-18 00:09 | ERPHSYRPT ---
- History of Present Illness Time Seen by Provider: 11/17/21 21:55 Source: patient Exam Limitations: no limitations Patient Subjective Stated Complaint: C/O Severe abdominal and back pain. Patient states it has been severe all day today and he just can't stand the pain any longer. Patient has also been very nauseated and has vomited. Triage Nursing Assessment: Patient brought to ED in a private vehicle and had to be placed in a wheelchair and brought back to ED. Patient showing physical s/s of pain. He is alert and oriented and but slow to answer questions due to current pain level. Peg tube noted in abdomen. Ileostomy also noted; patient s tates no stool in ileostomy today. Unable to palpate abdomen due current pain level. Patient indicated any pressure to abdomen at all causes pain to be absolutely unbearable. Physician History: Patient 31-year-old male with known colon cancer presents to our ED for evaluati on of severe abdominal pain. Patient has had abdominal pain all day. Patient has been nauseous. Patient has history of small bowel obstruction. Patient had a PEG tube placed for small bowel obstruction. Patient also has ileostomy tube. Patient reports a fever 101 at home. No shortness of breath no cough. No chest pain. Patient's abdominal pain described as an ache that is generalized. Pain worse with palpation. Pain worse with movement. Pain improves with rest. Symptoms are moderate to severe in intensity. Patient's oncologist is who practices at [facility]. Contact numbers are "[phone]. Timing/Duration: today Severity: severe Modifying Factors: Improves With: nothing Associated Symptoms: nausea, vomiting, abdominal pain, fever, No syncope, No seizure Allergies/Adverse Reactions: No Known Drug Allergies Allergy (Unverified 08/24/21 06:19) Home Medications: Apixaban [Eliquis 5 mg Tablet] 1 tab PO BID 11/17/21 [History] Diazepam 5 mg [Valium 5 MG] 1 tab PO Q6H PRN PRN 11/17/21 [History] Diltiazem HCl [Cardizem] 1 tab PO TID 11/17/21 [History] Metoprolol Succinate 25 mg Xl* [Toprol-Xl 25MG Tablets] 2 tab PO DAILY 11/17/21 [History] Morphine Sulfate Cr 15 mg [Ms Contin 15 MG] 1 tab PO BID 11/17/21 [History] Oxycodone HCl 1 tab PO Q3H/PRN PRN 11/17/21 [History] PANTOPRAZOLE 40 mg Tablet [Protonix 40MG Tablet] 1 tab PO DAILY 11/17/21 [History] Potassium Chloride 1 tab PO DAILY 11/17/21 [History] Prochlorperazine Maleate 10 mg [Compazine 10 mg] 1 tab PO Q6H PRN PRN 11/17/21 [History] Hx Tetanus, Diphtheria Vaccination/Date Given: Yes Hx Influenza Vaccination/Date Given: No Hx Pneumococcal Vaccination/Date Given: No Immunizations Up to Date: Yes Travel Risk - International Travel Have you traveled outside of the country in past 3 weeks: No - Coronavirus Screening Are you exhibiting any of the following symptoms?: Yes Symptoms: Fever Close contact with a COVID-19 positive Pt in past 14-21 Days: No - Vaccine Status Have you recieved a Covid-19 vaccination: No - Review of Systems All Other Systems: Unable due to condition - Past Medical History Pertinent Past Medical History: No Neurological History: No Pertinent History ENT History: No Pertinent History Cardiac History: No Pertinent History Respiratory History: No Pertinent History Endocrine Medical History: No Pertinent History Musculoskeletal History: Fractures GI Medical History: Colorectal Cancer, GERD, Other History: No Pertinent History Psycho-Social History: No Pertinent History Male Reproductive Disorders: No Pertinent History Other Medical History: Left wrsit fx, colon mass. Stage 4 colon cancer with mets to paratoneal lining. with bone mets. - Past Surgical History Past Surgical History: Yes Neuro Surgical History: No Pertinent History Cardiac: No Pertinent History Respiratory: No Pertinent History Gastrointestinal: Colon Resection, Other Genitourinary: No Pertinent History Musculoskeletal: No Pertinent History Male Surgical History: Vasectomy Other Surgical History: ileostomy, Peg tube placement - Social History Smoking Status: Never smoker Exposure to second hand smoke: No Drug Use: none Patient Lives Alone: No - Nursing Vital Signs Nursing Vital Signs: Initial Vital Signs Temperature 97.8 F 11/17/21 21:45 Pulse Rate 122 H 11/17/21 21:45 Respiratory Rate 20 11/17/21 21:45 Blood Pressure 140/99 11/17/21 21:45 O2 Sat by Pulse Oximetry 96 03/03/22 21:45 Pain Scale Pain Intensity 10 - Physical Exam General Appearance: mild distress (Mild distress due to abdominal pain), alert Eye Exam: PERRL/EOMI, eyes nml inspection Ears, Nose, Throat Exam: normal ENT inspection, TMs normal, pharynx normal, moist mucous membranes Neck Exam: normal inspection, non-tender, supple, full range of motion Respiratory Exam: normal breath sounds, lungs clear, airway intact, No respiratory distress Cardiovascular Exam: regular rate/rhythm, normal heart sounds, normal peripheral pulses Gastrointestinal/Abdomen Exam: soft, normal bowel sounds, tenderness (Diffuse abdominal tenderness. There is a papular lesion left lower quadrant of abdomen that is exquisitely tender.), No mass Back Exam: normal inspection, normal range of motion, No CVA tenderness, No vertebral tenderness Extremity Exam: normal inspection, normal range of motion, pelvis stable Neurologic Exam: alert, oriented x 3, cooperative, normal mood/affect, sensation nml, No motor deficits Skin Exam: normal color, warm, dry, No rash Lymphatic Exam: No adenopathy SpO2 Interpretation: normal SpO2: 96 O2 Delivery: Room Air - Course Nursing assessment & vital signs reviewed: Yes - CT Exams Abdomen/Pelvis CT Interpretation: Tele-radiologist Report (Small bowel obstruction, right lower quadrant ileostomy, gastrostomy tube, alveolar opacities, bilateral pleural effusions, fatty liver, degenerative disc disease, lobulated subcutaneous mass, Anterior abdominal wall) Ordered Tests: Active Orders 24 hr Category Date Time Status [employer] Equipment [employer] STAT Care 11/17/21 21:51 Active IV Insertion STAT Care 11/17/21 21:50 Active Pulse Oximetry (ED) STAT Care 11/17/21 21:50 Active ABDOMEN AND PELVIS W/0 CONTRAS [CT] Routine Exams 11/18/21 00:49 Taken BLOOD CULTURE Stat Lab 11/18/21 01:00 Received CBC W DIFF Stat Lab 11/17/21 22:05 Completed CMP Stat Lab 11/17/21 22:05 Completed Lactic Acid Stat Lab 11/18/21 03:10 Completed PROCALCITONIN Stat Lab 11/18/21 03:00 Completed UA W/RFX UR CULTURE Stat Lab 11/17/21 21:51 Ordered Medication Summary Generic Name Dose Route Start Last Admin Trade Name Freq PRN Reason Stop Dose Admin Sodium Chloride 1,000 mls @ 100 mls/hr 11/17/21 22:00 11/17/21 22:09 Sodium Chloride 0.9% 1000 Ml IV 12/17/21 21:59 100 mls/hr .Q10H FABIANA Administration Sodium Chloride 1,000 mls @ 100 mls/hr 11/18/21 00:15 11/18/21 01:58 Sodium Chloride 0.9% 1000 Ml IV 12/18/21 00:14 Not Given .Q10H FABIANA Discontinued Medications Generic Name Dose Route Start Last Admin Trade Name David PRN Reason Stop Dose Admin Diazepam 5 mg 11/17/21 22:01 11/17/21 22:03 Diazepam 10 Mg/2 Ml Disp.Syringe IV 11/17/21 22:02 5 mg STAT ONE Administration Diazepam Confirm 11/17/21 22:01 Diazepam 10 Mg/2 Ml Disp.Syringe Administered 11/17/21 22:02 Dose 10 mg .ROUTE .STK-MED ONE Diazepam 5 mg 11/18/21 03:02 11/18/21 03:08 Diazepam 10 Mg/2 Ml Disp.Syringe IV 11/18/21 03:03 5 mg STAT ONE Administration Diazepam Confirm 11/18/21 03:05 Diazepam 10 Mg/2 Ml Disp.Syringe Administered 11/18/21 03:06 Dose 10 mg .ROUTE .STK-MED ONE Diphenhydramine HCl 50 mg 11/18/21 00:54 11/18/21 01:04 Diphenhydramine Hcl 50 Mg/Ml Vial IV 11/18/21 00:55 50 mg STAT ONE Administration Diphenhydramine HCl Confirm 11/18/21 01:02 Diphenhydramine Hcl 50 Mg/Ml Vial Administered 11/18/21 01:03 Dose 50 mg .ROUTE .STK-MED ONE Diphenhydramine HCl 25 mg 11/18/21 04:24 11/18/21 04:26 Diphenhydramine Hcl 50 Mg/Ml Vial IV 11/18/21 04:25 25 mg STAT ONE Administration Diphenhydramine HCl Confirm 11/18/21 04:25 Diphenhydramine Hcl 50 Mg/Ml Vial Administered 11/18/21 04:26 Dose 50 mg .ROUTE .STK-MED ONE Hydromorphone HCl 1 mg 11/17/21 21:52 11/17/21 22:00 Hydromorphone 1 Mg/1ml Inj 1 Mg/Ml Syringe IV 11/17/21 21:53 1 mg STAT ONE Administration Hydromorphone HCl Confirm 11/17/21 21:53 Hydromorphone 1 Mg/1ml Inj 1 Mg/Ml Syringe Administered 11/17/21 21:54 Dose 1 mg .ROUTE .STK-MED ONE Hydromorphone HCl 1 mg 11/17/21 22:33 11/17/21 22:40 Hydromorphone 1 Mg/1ml Inj 1 Mg/Ml Syringe IV 11/17/21 22:34 1 mg STAT ONE Administration Hydromorphone HCl Confirm 11/17/21 22:39 Hydromorphone 1 Mg/1ml Inj 1 Mg/Ml Syringe Administered 11/17/21 22:40 Dose 1 mg .ROUTE .STK-MED ONE Hydromorphone HCl 0.5 mg 11/18/21 00:19 11/18/21 00:27 Hydromorphone 1 Mg/1ml Inj 1 Mg/Ml Syringe IV 11/18/21 00:20 0.5 mg STAT ONE Administration Hydromorphone HCl Confirm 11/18/21 00:20 Hydromorphone 1 Mg/1ml Inj 1 Mg/Ml Syringe Administered 11/18/21 00:21 Dose 1 mg .ROUTE .STK-MED ONE Hydromorphone HCl 0.5 mg 11/18/21 02:24 11/18/21 02:39 Hydromorphone 1 Mg/1ml Inj 1 Mg/Ml Syringe IV 11/18/21 02:25 0.5 mg STAT ONE Administration Hydromorphone HCl Confirm 11/18/21 02:28 Hydromorphone 1 Mg/1ml Inj 1 Mg/Ml Syringe Administered 11/18/21 02:29 Dose 1 mg .ROUTE .STK-MED ONE Hydromorphone HCl Confirm 11/18/21 05:23 Hydromorphone 1 Mg/1ml Inj 1 Mg/Ml Syringe Administered 11/18/21 05:24 Dose 1 mg .ROUTE .STK-MED ONE Vancomycin HCl 1 gm in 200 mls @ 125 mls/hr 11/18/21 01:42 11/18/21 04:11 Vancomycin 1 Gram/200 Ml Bag IV 11/18/21 03:17 Infused STAT ONE Infusion Piperacillin Sod/Tazobactam 100 mls @ 200 mls/hr 11/18/21 01:42 11/18/21 01:47 Sod 3.375 gm/ Sodium Chloride IV 11/18/21 02:11 200 mls/hr STAT ONE Administration Sodium Chloride Confirm 11/18/21 01:46 Sodium Chloride 100ml Mini-Bag Plus Administered 11/18/21 01:47 Dose 100 mls @ ud IV .STK-MED ONE Vancomycin HCl Confirm 11/18/21 02:28 Vancomycin 1 Gram/200 Ml Bag Administered 11/18/21 02:29 Dose 1 gm in 200 mls @ ud IV .STK-MED ONE Ondansetron HCl 4 mg 11/17/21 21:52 11/17/21 21:55 Ondansetron Hcl 4 Mg/2 Ml Vial IV 11/17/21 21:53 4 mg STAT ONE Administration Ondansetron HCl Confirm 11/17/21 21:52 Ondansetron Hcl 4 Mg/2 Ml Vial Administered 11/17/21 21:53 Dose 4 mg .ROUTE .STK-MED ONE Ondansetron HCl 4 mg 11/18/21 03:02 11/18/21 03:08 Ondansetron Hcl 4 Mg/2 Ml Vial IV 11/18/21 03:03 4 mg STAT ONE Administration Ondansetron HCl Confirm 11/18/21 03:04 Ondansetron Hcl 4 Mg/2 Ml Vial Administered 11/18/21 03:05 Dose 4 mg .ROUTE .STK-MED ONE Piperacillin Sod/Tazobactam Sod Confirm 11/18/21 01:45 Piperacillin/Tazobactam Sodium 3.375 Gm Vial Administered 11/18/21 01:46 Dose 3.375 gm IV .STK-MED ONE Lab/Rad Data: Laboratory Result Diagrams 11/17/21 22:05 11/17/21 22:05 Laboratory Results 11/18/21 11/18/21 11/18/21 Range/Units 03:10 03:00 02:52 WBC (4.0-10.5) K/mm3 RBC (4.1-5.6) M/mm3 Hgb (12.5-18.0) gm/dl Hct (42-50) % MCV (78-100) fl MCH (26-32) pg MCHC (32-36) g/dl RDW (11.5-14.0) % Plt Count (150-450) K/mm3 MPV (7.5-11.0) fl Gran % (36.0-66.0) % Eos # (Auto) (0-0.5) Absolute Lymphs (auto) (1.0-4.6) Absolute Monos (auto) (0.0-1.3) Lymphocytes % (24.0-44.0) % Monocytes % (0.0-12.0) % Eosinophils % (0.00-5.0) % Basophils % (0.0-0.4) % Absolute Granulocytes (1.4-6.9) Basophils # (0-0.4) Sodium (137-145) mmol/L Potassium (3.5-5.1) mmol/L Chloride (98-107) mmol/L Carbon Dioxide (22-30) mmol/L Anion Gap (5-15) MEQ/L BUN (9-20) mg/dL Creatinine (0.66-1.25) mg/dL Estimated GFR ML/MIN Glucose (74-106) mg/dL Lactic Acid 1.0 (0.4-2.0) Calcium (8.4-10.2) mg/dL Total Bilirubin (0.2-1.3) mg/dL AST (17-59) U/L ALT (0-50) U/L Alkaline Phosphatase (38-126) U/L Serum Total Protein (6.3-8.2) g/dL Albumin (3.5-5.0) g/dL Procalcitonin 0.440 H (0.030-0.080) ng/mL Influenza Type A Ag NEGATIVE (NEGATIVE) Influenza Type B Ag NEGATIVE (NEGATIVE) RSV (PCR) NEGATIVE (Negative) SARS-CoV-2 (PCR) NEGATIVE (NEGATIVE) 11/17/21 11/17/21 Range/Units 22:05 22:05 WBC 11.9 H (4.0-10.5) K/mm3 RBC 4.55 (4.1-5.6) M/mm3 Hgb 12.3 L (12.5-18.0) gm/dl Hct 37.7 L (42-50) % MCV 82.9 (78-100) fl MCH 27.0 (26-32) pg MCHC 32.6 (32-36) g/dl RDW 16.1 H (11.5-14.0) % Plt Count 433 (150-450) K/mm3 MPV 9.1 (7.5-11.0) fl Gran % 83.4 H (36.0-66.0) % Eos # (Auto) 0.01 (0-0.5) Absolute Lymphs (auto) 0.81 L (1.0-4.6) Absolute Monos (auto) 1.14 (0.0-1.3) Lymphocytes % 6.8 L (24.0-44.0) % Monocytes % 9.6 (0.0-12.0) % Eosinophils % 0.1 (0.00-5.0) % Basophils % 0.1 (0.0-0.4) % Absolute Granulocytes 9.88 H (1.4-6.9) Basophils # 0.01 (0-0.4) Sodium 126 L (137-145) mmol/L Potassium 3.7 (3.5-5.1) mmol/L Chloride 82 L (98-107) mmol/L Carbon Dioxide 35 H (22-30) mmol/L Anion Gap 12.4 (5-15) MEQ/L BUN 19 (9-20) mg/dL Creatinine 0.66 (0.66-1.25) mg/dL Estimated GFR > 60.0 ML/MIN Glucose 109 H (74-106) mg/dL Lactic Acid (0.4-2.0) Calcium 8.0 L (8.4-10.2) mg/dL Total Bilirubin 0.60 (0.2-1.3) mg/dL AST 24 (17-59) U/L ALT 19 (0-50) U/L Alkaline Phosphatase 183 H (38-126) U/L Serum Total Protein 6.2 L (6.3-8.2) g/dL Albumin 3.1 L (3.5-5.0) g/dL Procalcitonin (0.030-0.080) ng/mL Influenza Type A Ag (NEGATIVE) Influenza Type B Ag (NEGATIVE) RSV (PCR) (Negative) SARS-CoV-2 (PCR) (NEGATIVE) - Progress Progress: improved Progress Note: After further discussion with patient and they agreed to transfer to [facility] location of their oncologist Dr. Perez. Case discussed with nurse practitioner July Carrington who accepts transfer. Patient will be transferred to medicine service. We are currently awaiting call from hospitalist. 11/18/21 02:25 Patient transferred via medevac to [facility]. Patient stable. Patient comfortable. Pain well controlled. Portions of this note were created with voice recognition technology. There may be grammatical, spelling, punctuation or sound alike errors 11/18/21 05:50 Counseled pt/family regarding: lab results, diagnosis, rad results - Departure Departure Disposition: Home Clinical Impression: Hyponatremia, Intractable abdominal pain, Alveolar opacities right lower lobe, Colon cancer, Bilateral pleural effusion, Fatty liver, Degenerative disc disease, Abdominal wall lobulated nodule, Small bowel obstruction, Fever, Leukocytosis Condition: Stable Critical Care Time: No Referrals: DAIANA BA MD [Primary Care Provider] - Follow up/PCP as directed
[2021-11-18] MEDS ORDERED: Sodium Chloride 0.9% 1000 ML 1,000 ML IV SCH (00:15)
[2021-11-18] MEDS ORDERED: Hydromorphone 1 mg/ml Injection IV ONE ×3 (00:19→06:20)
[2021-11-18] MEDS ORDERED: Hydromorphone 1 mg/ml Injection ONE ×3 (00:20→05:23)
[2021-11-18] MEDS ORDERED: BENADRYL 50 MG/ML IV ONE ×2 (00:54→04:24)
[2021-11-18] MEDS ORDERED: BENADRYL 50 MG/ML ONE ×2 (01:02→04:25)
[2021-11-18] MEDS ORDERED: Sodium Chloride 0.9% 1000 ML 1,000 ML ONE (01:03)
[2021-11-18] MEDS ORDERED: Zosyn 3.375 GM Vial 3.375 GM in Sodium Chloride 100ML MINI-BAG PLUS 100 ML IV ONE (01:42)
[2021-11-18] MEDS ORDERED: VANCOMYCIN 1 GRAM/200 ML BAG 1 GM/200 ML PIGGYBACK IV ONE ×2 (01:42→02:28)
[2021-11-18] MEDS ORDERED: Zosyn 3.375 GM Vial IV ONE (01:45)
[2021-11-18] MEDS ORDERED: Sodium Chloride 100ML MINI-BAG PLUS 100 ML IV ONE (01:46)
[2021-11-18] MEDS ORDERED: Zofran 4 MG/2 ML VIAL IV ONE (03:02)
[2021-11-18] MEDS ORDERED: VALIUM 10 MG/2 ML SYRINGE IV ONE (03:02)
[2021-11-18] MEDS ORDERED: Zofran 4 MG/2 ML VIAL ONE (03:04)
[2021-11-18] MEDS ORDERED: VALIUM 10 MG/2 ML SYRINGE ONE (03:05)
[2021-11-18 03:31] LABS: INFLUENZA A NEGATIVE (NEGATIVE); INFLUENZA B NEGATIVE (NEGATIVE); RESPIRATORY SYNCTIAL VIRUS NEGATIVE (Negative); SARS-CoV-2 Xpert Express NEGATIVE (NEGATIVE)
[2021-11-18 05:13] VITALS: BP 146/96; PULSE 117
[2021-11-18 05:52] VITALS: O2SAT 96
--- NOTE | 2021-11-18 09:00 | XRAY ---
Indication: Diffuse abdominal pain. History colon cancer. Multiple contiguous axial images obtained through the abdomen and pelvis without contrast. Comparison: August 25, 2021. Lung bases demonstrates new patchy right lower lobe airspace disease and small left/tiny right effusions. Heart not enlarged with new pacer leads. New PEG tube with balloon tip in stomach. Stomach and bowel loops markedly fluid distended with fluid level in more than before. Maximum distended small bowel loop is 5.5 cm. Right lower quadrant bowel loops are more normal in caliber again with right midabdomen ileostomy. Findings again favor small bowel obstruction. No discrete transition point identified. New tiny perihepatic/perisplenic free fluid. No walled off fluid collection or free air. Remaining colon again demonstrates intraluminal radiopacity presumed ingested medication, bismuth, or barium. Previous metastatic mesenteric micronodules/mesenteric caking not appreciated given distended bowel loops. Grossly stable 2.1 x 1.7 cm left upper quadrant indeterminant abdominal wall soft tissue mass. Liver again diffusely fatty in attenuation. Stable small right mid renal indeterminant exophytic mass and tiny left mid renal angiomyolipoma. Gallbladder and pancreas poorly visualized on this noncontrast exam. Remaining spleen, adrenal glands, kidneys, ureters, bladder, and aorta are unremarkable for noncontrast exam. Osseous structures intact. Impression: 1. Again CT features favoring distal small bowel obstruction. 2. New tiny free fluid possibly reactive. 3. New right lower lobe patchy airspace disease and bibasilar effusions. 4. Stable right midabdomen ileostomy, indeterminant left abdominal wall soft tissue mass, colonic radiopacities, fatty liver, small indeterminate right renal exophytic mass, and tiny left renal angiomyolipoma. Comment: Preliminary interpretation made by [facility]. No critical discrepancy.
== END 2021-11-18 05:47 | disposition short-term general hospital (02) ==
LOC: ED 21:44
DX: C18.9 Malignant neoplasm of colon, unspecified (principal); E87.1 Hypo-osmolality and hyponatremia; R10.84 Generalized abdominal pain; R91.8 Other nonspecific abnormal finding of lung field; K76.0 Fatty (change of) liver, not elsewhere classified; M51.37 Other intervertebral disc degeneration, lumbosacral region; J90 Pleural effusion, not elsewhere classified; R50.9 Fever, unspecified; D72.829 Elevated white blood cell count, unspecified; Z98.0 Intestinal bypass and anastomosis status; R11.2 Nausea with vomiting, unspecified; Z79.01 Long term (current) use of anticoagulants; Z79.891 Long term (current) use of opiate analgesic; Z79.899 Other long term (current) drug therapy; C78.6 Secondary malignant neoplasm of retroperitoneum and peritoneum; C79.51 Secondary malignant neoplasm of bone
CPT/HCPCS: 0241U; 36000; 36415; 74176; 80053; 83605; 84145; 85025; 87040; 93041; 94760; 96365; 96367; 96374; 96375; 96376; 99285; J1170; J1200; J2405; J3360; J3370